=== PATIENT | male | born 2000 | race Hispanic/Latino ===

== ENCOUNTER 2021-09-18 11:55 | Observation (INO) | payer OTHER, SELFPAY ==
[2021-09-18] MEDS ORDERED: Ondansetron PF 4 MG/2 ML Vial IVP PRN ×2 (12:02→13:08)
[2021-09-18] MEDS ORDERED: Ondansetron ODT 4 MG TAB PO PRN (12:03)
[2021-09-18] MEDS ORDERED: Morphine 4 MG/ML VIAL SLOW IVP PRN ×3 (12:03→13:23)
[2021-09-18] MEDS ORDERED: Sodium Chloride 0.9% 1,000 ML IV SCH (12:15)
[2021-09-18] MEDS: Lactated Ringer's 1,000 ML IV SCH ×2 (17:14→22:22)
[2021-09-18] MEDS ORDERED: Bupivacaine PF 0.5% 30 ML VIAL ONE (18:37)
[2021-09-18] MEDS ORDERED: Lidocaine 1% w/Epinephrine 1:100K 20 ML VIAL ONE (18:37)
[2021-09-18] MEDS ORDERED: Fentanyl 250 MCG/5 ML VIAL ONE (19:17)
[2021-09-18] MEDS ORDERED: PROPOFOL 200 MG/20 ML VIAL ONE (19:33)
[2021-09-18] MEDS ORDERED: Ondansetron PF 4 MG/2 ML Vial ONE (19:33)
[2021-09-18] MEDS ORDERED: Lidocaine 1% PF 5 ML VIAL ONE (19:33)
[2021-09-18] MEDS ORDERED: Ketorolac Tromethamine 30 MG/ML VIAL ONE (19:33)
[2021-09-18] MEDS ORDERED: Glycopyrrolate 0.2 MG/ML 5 ML SYRINGE ONE (19:33)
[2021-09-18] MEDS ORDERED: Rocuronium Bromide 10 MG/ML (10ML VIAL) ONE (19:33)
[2021-09-18] MEDS ORDERED: Dexamethasone 20 MG/5 ML VIAL ONE (19:33)
[2021-09-18] MEDS ORDERED: Meperidine HCl/PF 25 MG/ML VIAL ONE (20:41)
[2021-09-18] MEDS ORDERED: HYDROmorphone 2 MG/ML VIAL SLOW IVP PRN (20:49)
[2021-09-18] MEDS ORDERED: Promethazine HCl 25 MG/ML VIAL IM PRN (20:49)
[2021-09-18] MEDS ORDERED: Meperidine HCl/PF 25 MG/ML VIAL SLOW IVP PRN (20:49)
[2021-09-18] MEDS ORDERED: Ondansetron HCl/PF 4 MG/2 ML Vial IVP PRN (20:49)
[2021-09-18] MEDS ORDERED: Promethazine HCl 25 MG/ML VIAL IVPB PRN (20:49)
[2021-09-18] MEDS ORDERED: HYDROcodone/Acetaminophen 5/325 mg Tablet PO PRN ×2 (21:32)
[2021-09-18] MEDS ORDERED: Acetaminophen 325 MG TAB PO PRN (21:32)
[2021-09-19] MEDS: Lactated Ringer's 1,000 ML IV SCH (05:14)
[2021-09-19 08:29] VITALS: BP 114/55; TEMP 97.9
[2021-09-19] MEDS ORDERED: FLU VACC QS2021-22(6MOS UP)/PF 60 MCG/0.5 ML SYRINGE IM ONE (09:00)
== END 2021-09-19 12:22 | disposition home or self-care (01) ==
LOC: SDC 11:55 → INTOOBSV 11:58 → SJJU 11:58
PROVIDERS: ADMIT Surgery; ATTEND Surgery
PROC: 0FT44ZZ Resection of Gallbladder, Percutaneous Endoscopic Approach (ICD-10-PCS; principal; 2021-09-18)
DX: K80.12 Calculus of gallbladder with acute and chronic cholecystitis without obstruction (principal)
CPT/HCPCS: 88304; 96374; G0378; J1100; J1885; J2175; J2270; J2405; J2704; J3010; J7050; J7120; S0020